=== PATIENT | male | born 1990 | race Caucasian/White ===

== ENCOUNTER 2018-08-13 17:00 | Outpatient (RCR) | payer BC, SELFPAY ==
--- NOTE | 2018-07-24 09:04 | HP.PTEVAL_ITS ---
Patient's Visit Information SRINIVAS ALEXANDRA is a 27 year old M referred to Physical Therapy by Mason Tran with a diagnosis of L shoulder pain. Date of Evaluation: 07/24/18 Physical Therapist: Justin Benjamin, PT, - Visit Plan Frequency: 2-3x /Week Duration: 3 Weeks Plan: L shoulder strengthening (rot cuff), scap stab ex's, UBE, and HEP - Subjective Subjective: Pt reports he tore his L biceps tendon and had it surgically repaired in March of 2018. Pt reports he was in a sling for 6 weeks, then had PT for 6 weeks. Pt reports he was doing great until after doing some yard work about one month ago. Pt reports his pain has returned and he feels as sore as he did prior to having the surgery. Pt reports he has had a steroid pack, which has not helped at all. Pt reports no sleep diff secondary to pain. Pt reports his ar m hanging at his side creates a lot of pain. Pt reports he cant even attempt overhead activity at this time secondary to pain. Pt reports he was told he needs a MRI or CT, but needs to attmpt PT to get that approved. Pt is R hand dominant. 3/10 at rest, 6/10 at worst (just walking at work) - Pain L shoulder Pain Intensity (Out of 10): 3 Pain Intensity Range: 6 - Objective Neuro: B UE sensation is WNL to light touch. B bicepital reflex= 2/3. Palpation: Minor pain on anterior L shoulder. No obvious deformity. ROM: R shoulder flex= 165, abd= 165, ER= 70, IR WNL; L shoulder flex= 145, abd= 160, ER= 45, IR= WNL. MMT: R shoulder is 5/5 throughout. L shoulder is 4+/5. Special test: No positive tests this date - Goals Goal 1:: Decrease L shoulder pain x 50% to aid with IADL's Goal Time Frame: 2-4 Weeks Goal 2:: Increase L shoulder strength x 1 grade to aid with house chores Goal Time Frame: 2-4 Weeks Goal 3:: I with HEP Goal Time Frame: 2-4 Weeks - Rehabilitation Potential Physical Therapy Diagnosis: L shoulder pain, weakness, and limited ROM secondary residual effects of L shoulder surgery Rehabilitation Potential: Good - Anticipated Interventions Patient/Client Instruction: Educate patient on: Condition, Plan of Care For the Purpose of:: To improve self management Therapeutic Exercise to Include: Strength training, Endurance training, Postural training, Flexibilty training, Active ROM, Scapular Strength/Stabilization For the Purpose of:: To decrease pain, To increase ROM, To improve muscle performance and motor function Cryotherapy (ice pack, ice massage): Yes For the Purpose of:: To decrease pain Thank you for the opportunity to evaluate your patient. For Medicare and Medicare HMO plans, please review the plan of care and approve it. It will need to be FAXED BACK to us at [phone] for Medicare purposes. Please let me know if there are questions or concerns regarding this plan of care. Physician Signature: Date:
--- NOTE | 2018-11-11 08:23 | HP.PT.NRP ---
HP - Discharge Summary (1) - Patient Information SRINIVAS ALEXANDRA was seen in my office for initial evaluation on 07/24/18. The following Plan of Care was established for this patient: Initial Frequency: 2-3x /Week Initial Duration: 3 Weeks - Anticipated Interventions Patient/Client Instruction: Educate patient on: Condition, Plan of Care For the Purpose of:: To improve self management Therapeutic Exercise to Include: Strength training, Endurance training, Postural training, Flexibilty training, Active ROM, Scapular Strength/Stabilization For the Purpose of:: To decrease pain, To increase ROM, To improve muscle performance and motor function Cryotherapy (ice pack, ice massage): Yes For the Purpose of:: To decrease pain This patient was last seen in our office . Pertinent comments regarding their Physical therapy will appear below: Pt was last treated for his L shoulder pain on the date of 08/13/18. Pt has not returned since that appointment, and is therefore discontinued at this time with Rx goals not being re-assessed . At this point I will be discontinuing this patient from physical therapy. I would be happy to see this patient again in the future if found appropriate by the physician. Thank you! Justin Benjamin, PT, ATC
== END 2018-08-13 19:00 | disposition home or self-care (01) ==
LOC: PT 17:00
PROVIDERS: Family Provider Internal Medicine Adolescent Medicine; PCP Internal Medicine Adolescent Medicine; Referring Provider Orthopaedic Surgery Hand Surgery; Visit Provider Orthopaedic Surgery Hand Surgery
DX: M25.512 Pain in left shoulder (principal); S46.912D Strain of unspecified muscle, fascia and tendon at shoulder and upper arm level, left arm, subsequent encounter; M75.22 Bicipital tendinitis, left shoulder; M21.822 Other specified acquired deformities of left upper arm; S46.212D Strain of muscle, fascia and tendon of other parts of biceps, left arm, subsequent encounter
CPT/HCPCS: 97110; 97161

== ENCOUNTER 2019-01-07 16:00 | Outpatient (RCR) | payer BC, SELFPAY ==
--- NOTE | 2018-11-24 17:03 | HP.PTEVAL ---
Patient's Visit Information SRINIVAS ALEXANDRA is a 28 year old M referred to Physical Therapy by Mason Tran with a diagnosis of L biceps repair. Date of Evaluation: 11/24/18 Physical Therapist: Justin Benjamin, PT, ATC - Visit Plan Frequency: 2x /Week Duration: 6 Weeks Plan: L shoulder stretching and strengthening, scap stab ex's, UBE, and HEP - Subjective Findings: DOS: 10/07/18. Pt reports he tore his L biceps tendon and had to have it surgically repaired on 04/01/18. Pt reports he believes he may have returned to performing yard work a little too early from his first surgery because he tore his biceps tendon for a second time which is why he had to have this surgery. Pt reports he has been in a lot pain since having the second surgery. Pt notes he has had a cortisone injection and been on antiinflamatories since the surgery, but he has experienced only minimal relief. No tingling or numbness in L shoulder. sleep diff without anti-inflamatory. Pt is R hand dominant. 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 3/10 at rest, 5/10 at worst (sudden sharp pain) - Pain L shoulder Pain Intensity (Out of 10): 3 Pain Intensity Range: 5 - Objective Neuro: B UE sensation is WNL to light touch. B bicepital reflex= 2/3. Observation: Incisions healed at this time. No obvious signs of infection. ROM: R shoulder flex= 165, abd= 170, ER= 80, IR WNL; L shoulder flex= 155, abd= 160, ER= 60, IR WNL. MMT: R shoulder 5/5 throughout, L shoulder 4 - Goals Goal 1:: Decrease L shoulder pain x 50% to aid with sleep Goal Time Frame: 4-6 Weeks Goal 2:: Increase L shoulder flex and abd ROM x 20 degrees to aid with overhead lifitning Goal Time Frame: 4-6 Weeks Goal 3:: Increase L shoulder strength x 1 graide to aid with IADL's Goal Time Frame: 4-6 Weeks Goal 4:: I with HEP Goal Time Frame: 4-6 Weeks - Rehabilitation Potential Physical Therapy Diagnosis: L shoulder pain, weakness, and limited ROM secondary to L biceps repair Rehabilitation Potential: Good - Anticipated Interventions Patient/Client Instruction: Educate patient on: Condition, Plan of Care For the Purpose of:: To improve self management Therapeutic Exercise to Include: Strength training, Endurance training, Flexibilty training, Active ROM, Scapular Strength/Stabilization For the Purpose of:: To decrease pain, To increase ROM, To improve muscle performance and motor function Cryotherapy (ice pack, ice massage): Yes For the Purpose of:: To decrease pain Thank you for the opportunity to evaluate your patient. For Medicare and Medicare HMO plans, please review the plan of care and approve it. It will need to be FAXED BACK to us at [phone] for Medicare purposes. For Medicare only, by signing this I certify the plan of care. Please let me know if there are questions or concerns regarding this plan of care. Physician Signature: Date:
--- NOTE | 2019-03-25 13:52 | HP.PT.NRP ---
HP - Discharge Summary (1) - Patient Information SRINIVAS ALEXANDRA was seen in my office for initial evaluation on 11/24/18. The following Plan of Care was established for this patient: Initial Frequency: 2x /Week Initial Duration: 6 Weeks - Anticipated Interventions Patient/Client Instruction: Educate patient on: Condition, Plan of Care For the Purpose of:: To improve self management Therapeutic Exercise to Include: Strength training, Endurance training, Flexibilty training, Active ROM, Scapular Strength/Stabilization For the Purpose of:: To decrease pain, To increase ROM, To improve muscle performance and motor function Cryotherapy (ice pack, ice massage): Yes For the Purpose of:: To decrease pain This patient was last seen in our office . Pertinent comments regarding their Physical therapy will appear below: Pt was treated for 13 PT visits for his R shoulder pain through the date of 01/07/19. Pt waw ordered to stop PT at that time by surgeon, and has not returned through todays date. Pt is therefore discontinued at this time. At this point I will be discontinuing this patient from physical therapy. I would be happy to see this patient again in the future if found appropriate by the physician. Thank you! Justin Benjamin, PT, ATC
== END 2019-01-07 16:30 | disposition home or self-care (01) ==
LOC: PT 16:00
PROVIDERS: Family Provider Internal Medicine Adolescent Medicine; PCP Internal Medicine Adolescent Medicine; Referring Provider Orthopaedic Surgery Hand Surgery; Visit Provider Orthopaedic Surgery Hand Surgery
DX: S46.912D Strain of unspecified muscle, fascia and tendon at shoulder and upper arm level, left arm, subsequent encounter (principal); M75.22 Bicipital tendinitis, left shoulder; Z47.89 Encounter for other orthopedic aftercare
CPT/HCPCS: 97110; 97161

== ENCOUNTER 2019-04-23 16:30 | Outpatient (RCR) | payer BC, SELFPAY ==
--- NOTE | 2019-04-14 09:52 | HP.PTEVAL_ITS ---
Patient's Visit Information SRINIVAS ALEXANDRA is a 28 year old M referred to Physical Therapy by Amauri Rdz with a diagnosis of R shoulder arthroscopy. Date of Evaluation: 04/06/19 Physical Therapist: Montez Leblanc DPT - Visit Plan Frequency: 3x /Week Duration: 4-6 Weeks Plan: Start with wand end range of motion, initiate strength/stability exercises. Do not push through increased pain. - Subjective Findings: Pt. is here today for his initial evaluation with diagnosis of L shoulder arthroscope. Pt. has had 3 surgeries on his shoulder at this point in time. Pt. is currently 2-3 weeks out of surgery and reports being so much better now. Pt. has been doing PT at local clinic with positive results. Pt. is back to work without much restriction. 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 Pt. denies N/T, but does noticie occassional symptoms with lifting over head. pt. is hopeful to increase his strength in order to get back to all recreational activities without limitations. - Pain L shoulder Pain Intensity (Out of 10): 1 Pain Intensity Range: 0, 4 - Objective POSTURE: Pt. has dencent posture in stance. Pt. has normal shoulder positioning, normal head posture. PALPATION: Normal healing incision, no signs of infection. Slight tenderness at subacromial space. NEURO: normal. ROM: R shoulder full ROM. L shoulder- flexion 165deg, abd 164deg, functional ER C4, functional IR L3. Mild increase in symptoms at end ranges. MMT: R shoulder- 5/5 throughout; L shoulder- flexion 4/5, abd 4/5, ER 4/5. IR 4/5. ext 4/5. - Goals Goal 1:: Pt. to be I with HEP. Goal Time Frame: 4-6 Weeks Goal 2:: Pt. to have increased L shoulder ROM to full without increase in symptoms. Goal Time Frame: 4-6 Weeks Goal 3:: Pt. to have increased R shoulder MMT by 1/2 grade of all effected musculature. Goal Time Frame: 4-6 Weeks Goal 5:: Pt. to sleep throughout the night without increase in symptoms. Goal Time Frame: 4-6 Weeks Goal 6:: Pt. to resume all recreational activities without increase in symptoms. Goal Time Frame: 4-6 Weeks - Rehabilitation Potential Physical Therapy Diagnosis: Pt. has signs and symptoms consistent with post surgerical arthroscopy. Pt. is progressingw ith ROM and now strength. Pt. reports minimal pain and is compliant with HEP. Pt .would benefit from PT to increase final degrees of ROM and initiate strengthening. Rehabilitation Potential: Excellent - Anticipated Interventions Patient/Client Instruction: Educate patient on: Condition, Plan of Care, Risk Factors, Benefits of Fitness Program For the Purpose of:: To improve decision making, To facilitate caregiver knowledge, To improve self management, To prevent re-injury, To improve ability to perform tasks related to life management, To improve tolerance to ADL's Therapeutic Exercise to Include: Strength training, Power training, Endurance training, Postural training, Flexibilty training, Gait and locomotor training, Passive ROM, Active ROM, Tony Exercises, Scapular Strength/Stabilization For the Purpose of:: To decrease pain, To decrease swelling/inflammation, To increase ROM, To improve nutrient delivery to tissue, To increase oxygenation perfusion, To improve muscle performance and motor function, To improve ability to perform ADL's, To increase tolerance to activity/condition/position IF ES: Yes Cryotherapy (ice pack, ice massage): Yes For the Purpose of:: To decrease pain, To decrease swelling/inflammation, To increase ROM, To improve nutrient delivery to tissue Thank you for the opportunity to evaluate your patient. For Medicare and Medicare HMO plans, please review the plan of care and approve it. It will need to be FAXED BACK to us at [phone] for Medicare purposes. For Medicare only, by signing this I certify the plan of care. Please let me know if there are questions or concerns regarding this plan of care. Physician Signature: Date:
--- NOTE | 2019-10-21 07:03 | HP.PT.NRP ---
HP - Discharge Summary (1) - Patient Information SRINIVAS ALEXANDRA was seen in my office for initial evaluation on 04/06/19. The following Plan of Care was established for this patient: Initial Frequency: 3x /Week Initial Duration: 4-6 Weeks - Anticipated Interventions Patient/Client Instruction: Educate patient on: Condition, Plan of Care, Risk Factors, Benefits of Fitness Program For the Purpose of:: To improve decision making, To facilitate caregiver knowledge, To improve self management, To prevent re-injury, To improve ability to perform tasks related to life management, To improve tolerance to ADL's Therapeutic Exercise to Include: Strength training, Power training, Endurance training, Postural training, Flexibilty training, Gait and locomotor training, Passive ROM, Active ROM, Tony Exercises, Scapular Strength/Stabilization For the Purpose of:: To decrease pain, To decrease swelling/inflammation, To increase ROM, To improve nutrient delivery to tissue, To increase oxygenation perfusion, To improve muscle performance and motor function, To improve ability to perform ADL's, To increase tolerance to activity/condition/position IF ES: Yes Cryotherapy (ice pack, ice massage): Yes For the Purpose of:: To decrease pain, To decrease swelling/inflammation, To increase ROM, To improve nutrient delivery to tissue This patient was last seen in our office 04/23/19. Pertinent comments regarding their Physical therapy will appear below: Pt. was seen for his shoulder arthroscopy. He was seen for 5 visits, but has not been seen since. Pt. will be DC from PT at this point in time. At this point I will be discontinuing this patient from physical therapy. I would be happy to see this patient again in the future if found appropriate by the physician. Thank you! Montez Leblanc, KAMT
== END 2019-04-23 17:00 | disposition home or self-care (01) ==
LOC: PT 16:30
PROVIDERS: Family Provider Internal Medicine Adolescent Medicine; PCP Internal Medicine Adolescent Medicine; Referring Provider Orthopaedic Surgery; Visit Provider Orthopaedic Surgery
DX: S43.432D Superior glenoid labrum lesion of left shoulder, subsequent encounter (principal); M75.42 Impingement syndrome of left shoulder; M19.012 Primary osteoarthritis, left shoulder; S43.422D Sprain of left rotator cuff capsule, subsequent encounter; S46.212D Strain of muscle, fascia and tendon of other parts of biceps, left arm, subsequent encounter
CPT/HCPCS: 97014; 97110; 97161; 97530; G0283